=== PATIENT | male | born 1990 | race African-American/Black ===

== ENCOUNTER 2017-08-30 23:44 | Emergency (ER) | payer OTHER, BC ==
[~2017-08-30] VITALS: Wt 68.0 kg
[~2017-08-30 23:44] MED LIST: CLINDAMYCIN HC300 MG PO; NKHM; VICODIN 5/500 505 MG PO
== END 2017-08-31 02:10 | disposition home or self-care (01) ==
LOC: ED 23:44
DX: S50.812A Abrasion of left forearm, initial encounter (principal); S80.211A Abrasion, right knee, initial encounter; F17.200 Nicotine dependence, unspecified, uncomplicated; V49.88XA Car occupant (driver) (passenger) injured in other specified transport accidents, initial encounter; Y93.89 Activity, other specified; Y92.413 State road as the place of occurrence of the external cause; Y99.9 Unspecified external cause status

== ENCOUNTER 2024-08-10 16:07 | Emergency (ER) | payer OTHER ==
[~2024-08-10] VITALS: Ht 172.7 cm; Wt 77.1 kg
== END 2024-08-10 19:08 | disposition left against medical advice (07) ==
LOC: ED 16:07
DX: R51.9 Headache, unspecified (principal); M79.603 Pain in arm, unspecified; Z53.21 Procedure and treatment not carried out due to patient leaving prior to being seen by health care provider; V89.2XXA Person injured in unspecified motor-vehicle accident, traffic, initial encounter; Y93.89 Activity, other specified; Y92.89 Other specified places as the place of occurrence of the external cause; Y99.8 Other external cause status